=== PATIENT | male | born 1955 | race Native Hawaiian/Other Pacific Islander ===

== ENCOUNTER 2018-03-25 06:53 | Outpatient (CLI) | payer OTHER | END 2018-03-25 06:54 | disposition home or self-care (01) | LOC: C.LAB 06:53 | DX: E11.9 Type 2 diabetes mellitus without complications (principal); E78.1 Pure hyperglyceridemia; I10 Essential (primary) hypertension; K62.89 Other specified diseases of anus and rectum; Z68.34 Body mass index [BMI] 34.0-34.9, adult ==

== ENCOUNTER 2018-04-02 07:34 | Outpatient (CLI) | payer OTHER | END 2018-04-02 07:35 | disposition home or self-care (01) | LOC: C.PAT 07:34 | DX: Z12.11 Encounter for screening for malignant neoplasm of colon (principal) ==

== ENCOUNTER 2018-04-10 07:13 | Day surgery (SDC) | payer OTHER ==
[2018-04-02 07:44] VITALS: BMI 35.9
[2018-04-10 08:02] VITALS: TEMP 97.7
--- NOTE | 2018-04-10 09:25 | CP.SDSHP ---
Same Day Surgery H & P - History Proposed Procedure: colonoscopy Pre-Op Diagnosis: screening - Previous Medical/Surgical History Cardiac: Hypertension Endocrine/Metabolic: Diabetes Comments: hyperlipidemia - Allergies Allergies: Allergies No Known Allergies Allergy (Verified 04/10/18 08:02) - Physical Exam General Appearance: NAD Vital Signs: Vital Signs 04/10/18 04/10/18 07:45 07:57 Temperature 97.7 F Pulse Rate 80 80 Respiratory 20 Rate Blood Pressure 185/85 H O2 Sat by Pulse 97 Oximetry Mental Status: Alert & Oriented x3 Neuro: WNL Heart: WNL Lungs: WNL GI: WNL - {Optional Preform as Required} Abdomen: WNL - Impression Pt. Evaluated Today:Candidate for Anesthesia & Procedure: Yes - Date & Time Date: 04/10/18 Time: 09:25 Short Stay Discharge - Short Stay Discharge Admitting Diagnosis/Reason for Visit: SCREENING Disposition: HOME/ ROUTINE
[2018-04-10] MEDS ORDERED: Lactated Ringer's 500 ML IV ONE ×2 (09:27)
[2018-04-10] MEDS ORDERED: Propofol 10 mg/ml Inj (20 ML) ONE (09:30)
[2018-04-10] MEDS ORDERED: Midazolam 2 MG/2 ML VIAL ONE (09:30)
[2018-04-10 09:36] VITALS: PULSE 99; RESP 15; O2SAT 99
[2018-04-10] MEDS ORDERED: Lactated Ringer's 500 ML IV SCH (09:45)
[2018-04-10 10:37] VITALS: BP 118/69
== END 2018-04-10 10:37 | disposition home or self-care (01) ==
LOC: C.ENDO 07:13
PROVIDERS: ATTEND Internal Medicine Gastroenterology
DX: D12.2 Benign neoplasm of ascending colon (principal); Z12.11 Encounter for screening for malignant neoplasm of colon; E11.9 Type 2 diabetes mellitus without complications; I10 Essential (primary) hypertension; K64.1 Second degree hemorrhoids
CPT/HCPCS: 45385; 82948; 88305; J2250; J2704; J7120

== ENCOUNTER 2018-05-17 07:06 | Outpatient (CLI) | payer OTHER | END 2018-05-17 07:07 | disposition home or self-care (01) | LOC: C.RADH 07:06 | DX: Z57.39 Occupational exposure to other air contaminants (principal) ==